=== PATIENT | male | born 1935 | race Caucasian/White ===

== ENCOUNTER 2017-09-09 10:05 | Emergency (ER) | payer OTHER ==
[2017-09-09 10:12] VITALS: RESP 16
--- NOTE | 2017-09-09 10:21 | EDPHY ---
H & P Time Seen by Provider: 09/09/17 10:14 HPI/ROS: CHIEF COMPLAINT: Head injury HISTORY OF PRESENT ILLNESS: 82-year-old male, no anticoagulant use beyond daily aspirin, arrives via private vehicle complaining of acute head injury which occurred shortly prior to arrival as he was leaving spiritism, slipped on ice , fell backward impacting his occiput with noted bleeding. No loss of consciousness. No nausea or vomiting. No midline C-spine pain or peripheral paresthesia, weakness, numbness. No alcohol or drug use. No amnesia. No other injury. PRIMARY CARE PROVIDER:Dr. Danish Ward REVIEW OF SYSTEMS: A ten point review of systems was performed and is negative with the exception of the items mentioned in the HPI PAST MEDICAL/SURGICAL HISTORY: no anticoagulant use, no relevant medical/ surgical history SOCIAL HISTORY: denies alcohol use at time of incident PHYSICAL EXAM 1) GENERAL: Well-developed, well-nourished, alert and oriented. Appears to be in no acute distress. Answering questions appropriately. GCS 15 2) HEAD: Normocephalic, midline occipital abrasion and 1 cm flap laceration 3) HEENT: Pupils equal, round, reactive to light bilaterally. Negative Horners. Nasopharynx, oropharynx, clear. No deformity or angulation of nose. No septal hematoma. No rhinorrhea. No oral trauma. Ears bilaterally with normal tympanic membranes. No hemotympanum. No fluid or blood in the external auditory canal. No raccoon eyes. No Duff sign. Teeth are normally aligned with no gross malocclusion, TMJ bilaterally nontender, facial bones nontender including the zygomatic arch, maxilla mandible. 4) NECK: No cervical collar is on. Posterior cervical spine is nontender, no stepoff, no effusion. Full range of motion which does not elicit any midline cervical spine pain, no posterior midline tenderness, no step-off. 5) LUNGS: Clear to auscultation bilaterally, no wheezes, no rhonchi, no retractions. No obvious signs of trauma. No chest wall pain. No flaring, no grunting. Moving symmetrically. No crepitus. 6) HEART: [Regular rate and rhythm, 7) ABDOMEN: No guarding, no rebound, no focal tenderness, no peritoneal signs, no signs of trauma, no ecchymosis 8) MUSCULOSKELETAL: Moving all extremities, no focal areas of tenderness, no obvious trauma. 9) BACK: No midline vertebral tenderness, no fluctuance, no step-off, no obvious trauma, no visual or palpable abnormality. 10) SKIN: occipital abrasion 11) NEURO: Awake, alert, and oriented to person, place and time. Answers questions appropriately. There were no obvious focal neurologic abnormalities. No cerebellar dysfunction. Normal steady gait. Upper and lower extremities bilaterally with strength 5 / 5, reflexes 2+. DIFFERENTIAL DIAGNOSIS: Not necessarily in any particular order, my differential diagnosis includes, but is not limited to, concussion, skull fracture, intraparenchymal contusion, subarachnoid, subdural and epidural hematoma. The patient understands that this diagnosis is provisional and can never be 100% accurate. Smoking Status: Never smoked Constitutional: Initial Vital Signs Temperature (C) 36.6 C 09/09/17 10:09 Heart Rate 78 09/09/17 10:09 Respiratory Rate 16 09/09/17 10:09 Blood Pressure 160/90 H 09/09/17 10:09 O2 Sat (%) 98 09/09/17 10:09 O2 Delivery Mode Room Air Allergies/Adverse Reactions: No Known Allergies Allergy (Unverified 09/09/17 10:08) Home Medications: Medication Instructions Recorded HCTZ (*) 09/09/17 Quinapril HCl 09/09/17 MDM/Departure - MDM Imaging Results: Imaging Impressions Head CT 09/09/17 10:19 Impression: 1. Mild cerebral atrophy. 2. No skull fracture. 3. No intracranial hemorrhage or epidural/subdural hematoma. Findings and recommendations discussed with Emergency Department physician investment sales assistant, Elda Teresa, at 1053 hours, 09/09/2017. Final report concurs with initial preliminary interpretation. Images reviewed by myself Procedures: Procedure: Laceration repair with tissue adhesive Verbal consent was obtained from the patient. The laceration on the occipital scalp was scrubbed and explored to its base with a gloved finger. No foreign body seen, no foreign bodies palpated. There were no deep structures involved. The wound was repaired with tissue adhesive. The procedure was performed by myself. Patient has been informed that scarring will occur, although every effort has been made to minimize this. ED Course/Re-evaluation: 10:[address] ordered in this patient for trauma for the following indication: Greater than 65 years old 10:50 a.m.: Negative head CT per Radiology interpretation 10:55 a.m.: Re-evaluation, answering questions appropriately, GCS 15. Discussed his imaging results. Laceration has been repaired. U usual and customary head injury precautions and instructions provided. He feels comfortable being discharged. Care of patient under supervision of secondary supervising physician Dr Garcia Magana . - Depart Disposition: Home, Routine, Self-Care Clinical Impression: Head injury due to trauma Qualifiers: Encounter type: initial encounter Qualified Code(s): S09.90XA - Unspecified injury of head, initial encounter Fall from slipping on ice Qualifiers: Encounter type: initial encounter Qualified Code(s): W00.9XXA - Unspecified fall due to ice and snow, initial encounter Occipital scalp laceration Qualifiers: Encounter type: initial encounter Qualified Code(s): S01.01XA - Laceration without foreign body of scalp, initial encounter Condition: Good Instructions: Laceration (ED), Head Injury (ED) Additional Instructions: ALTHOUGH THERE IS NO EVIDENCE OF SERIOUS HEAD INJURY AT THIS TIME, DELAYED SIGNS CAN APPEAR 24 TO 48 HOURS AFTER INJURY. WE RECOMMEND THAT YOU DESIGNATE A FRIEND OR FAMILY MEMBER TO OBSERVE YOU OVER THE NEXT FEW DAYS TO ENSURE THAT YOUR CONDITION IS PROGRESSING NORMALLY. PLEASE RETURN TO THE EMERGENCY DEPARTMENT (ED) IMMEDIATELY IF YOU HAVE INCREASED HEADACHE, PERSISTENT HEADACHE , VOMITING, WEAKNESS, CONFUSION OR VISUAL PROBLEMS. WE RECOMMEND THAT YOU DO NOT RESUME CONTACT SPORTS OR ACTIVITIES THAT TAKE COORDINATION OR BALANCE SUCH SKIING OR RIDING A BICYCLE UNTIL CLEARED TO DO SO BY YOUR DOCTOR OR BY A NEUROLOGIST. Referrals: Danish Ward MD [Primary Care Provider] - 2-3 days, call for appt.
[2017-09-09] MEDS ORDERED: SKIN ADHESIVE (DERMABOND) 1 EACH TP ONE (10:53)
[2017-09-09 11:25] VITALS: BP 116/74; PULSE 80; TEMP 98.6; O2SAT 94
== END 2017-09-09 11:23 | disposition home or self-care (01) ==
PROC: 0HQ0XZZ Repair Scalp Skin, External Approach (ICD-10-PCS; principal; 2017-09-09)
DX: S09.90XA Unspecified injury of head, initial encounter (principal); S01.01XA Laceration without foreign body of scalp, initial encounter; W00.0XXA Fall on same level due to ice and snow, initial encounter; Y92.22 Religious institution as the place of occurrence of the external cause; Y93.89 Activity, other specified